=== PATIENT | male | born 1975 | race African-American/Black ===

== ENCOUNTER 2019-12-20 14:57 | Emergency (ER) | payer MEDICAID ==
[~2019-12-20] VITALS: Ht 177.8 cm; Wt 95.0 kg
[2019-12-20] MEDS ORDERED: IBUPROFEN 400 MG TABLET PO ONE (15:30)
[2019-12-20 16:24] VITALS: BP 159/85
== END 2019-12-20 16:44 | disposition home or self-care (01) ==
LOC: EMS 15:01
DX: M79.644 Pain in right finger(s) (principal); M79.641 Pain in right hand; I10 Essential (primary) hypertension; J45.909 Unspecified asthma, uncomplicated; F17.210 Nicotine dependence, cigarettes, uncomplicated; Z98.890 Other specified postprocedural states
CPT/HCPCS: 99406

== ENCOUNTER 2021-05-10 13:02 | Emergency (ER) | payer MEDICAID, OTHER ==
[~2021-05-10] VITALS: Ht 177.8 cm; Wt 90.9 kg
[2021-05-10 13:27] LABS: BASOPHILS % (AUTO) 0.3 % (0.0-2.0); EOSINOPHILS % (AUTO) 0.4 % (1.0-6.0); HEMATOCRIT 44.9 % (41-53); HEMOGLOBIN 14.5 g/dL (13.5-17.5); LYMPHOCYTES # (AUTO) 2.1 K/uL (1.0-4.8); MEAN CORPUSCULAR HEMOGLOBIN 29.4 pg (26.0-34.0); MEAN CORPUSCULAR HGB CONC 32.4 G/dL (31.0-37.0); MEAN CORPUSCULAR VOLUME 91 fL (80-100); MONOCYTES # (AUTO) 0.8 K/uL (0.1-1.0); MONOCYTES % (AUTO) 7.2 % (2.0-9.0); NEUTROPHILS # (AUTO) 8.2 K/uL (1.8-7.7); NEUTROPHILS % (AUTO) 73.1 % (40.0-70.0); PLATELET COUNT (AUTO) 244 K/uL (150-450); RED BLOOD CELL COUNT(AUTO) 4.94 MIL/uL (4.50-5.90); RED CELL DISTRIBUTION WIDTH 13.4 % (11.5-14.5)
[2021-05-10 13:43] LABS: ANION GAP 11 mmol/L (8-16); CALCIUM, TOTAL 9.1 mg/dL (8.8-10.5); CARBON DIOXIDE 25 mmol/L (22-29); CHLORIDE 107 mmol/L (98-107); CREATININE 1.22 mg/dL (0.60-1.30); GLOMERULAR FILTR. RATE CALC > 60 mL/min (>60); GLUCOSE,RANDOM 96 mg/dL (70-110); POTASSIUM 4.6 mmol/L (3.5-5.1); SODIUM SERUM 143 mmol/L (136-145); UREA NITROGEN, BLOOD 14 mg/dL (7-18)
[2021-05-10 13:47] LABS: ALANINE AMINOTRANSFERASE 28 U/L (12-78); ALBUMIN 3.6 g/dL (3.4-5.0); ALKALINE PHOSPHATASE 82 U/L (46-116); ASPARTATE AMINOTRANSFERASE 20 U/L (15-37); BILIRUBIN,TOTAL 0.8 mg/dL (0.1-1.0); TOTAL PROTEIN, SERUM 7.8 g/dL (6.4-8.2)
[2021-05-10 18:21] VITALS: BP 136/84
== END 2021-05-10 18:22 | disposition home or self-care (01) ==
LOC: EMS 13:05
DX: R07.89 Other chest pain (principal); J45.909 Unspecified asthma, uncomplicated; I10 Essential (primary) hypertension; F17.210 Nicotine dependence, cigarettes, uncomplicated
CPT/HCPCS: 71045; 80053; 84484; 85025; 93005; 99285; 36415-L1; 36415-TC

== ENCOUNTER 2022-02-11 12:54 | Emergency (ER) | payer OTHER ==
[~2022-02-11] VITALS: Ht 177.8 cm; Wt 90.9 kg
[2022-02-11] MEDS ORDERED: POVIDONE-IODINE 10% 120 ML SOLUTION TP ONE (13:30)
[2022-02-11] MEDS ORDERED: BUPIVACAINE HCL/PF 0.5% 10 ML VIAL SQ ONE (13:30)
[2022-02-11] MEDS ORDERED: CEPH500C3 PO (13:54)
[2022-02-11] MEDS ORDERED: SULF-261 PO (13:54)
[2022-02-11] MEDS ORDERED: IBUP-2070 PO (13:54)
[2022-02-11 14:06] VITALS: BP 128/81
== END 2022-02-11 14:36 | disposition home or self-care (01) ==
LOC: EMS 12:54
DX: L02.212 Cutaneous abscess of back [any part, except buttock and flank] (principal)
CPT/HCPCS: 10060; 99283; J3490

== ENCOUNTER 2022-02-14 22:47 | Emergency (ER) | payer OTHER ==
[~2022-02-14] VITALS: Ht 177.8 cm; Wt 90.9 kg
[~2022-02-14 22:47] MED LIST: CEPH500C3 PO; IBUP-2070 PO; SULF-261 PO
[2022-02-14 23:30] VITALS: BP 128/84
== END 2022-02-14 23:57 | disposition home or self-care (01) ==
LOC: EMS 22:50
DX: Z48.00 Encounter for change or removal of nonsurgical wound dressing (principal); Z98.890 Other specified postprocedural states
CPT/HCPCS: 99281; Z7502

== ENCOUNTER 2023-03-15 15:01 | Emergency (ER) | payer OTHER ==
[~2023-03-15] VITALS: Ht 177.8 cm; Wt 83.2 kg
[~2023-03-15 15:01] MED LIST changes: +CEPH-558 PO; -CEPH500C3 PO; +IBUP-1492 PO; -IBUP-2070 PO
[2023-03-15] MEDS ORDERED: DOXYCYCLINE HYCLATE 100 MG TABLET PO ONE (15:30)
[2023-03-15] MEDS ORDERED: CefTRIAXone SODIUM 1 GM/VIAL IM ONE (15:30)
[2023-03-15] MEDS ORDERED: LIDOCAINE/PF 1% 2 ML VIAL IM ONE (15:30)
[2023-03-15 16:07] LABS: APPEARANCE,URINE CLEAR (CLEAR); BILIRUBIN,URINE NEGATIVE (NEGATIVE); GLUCOSE, URINE (UA) NEGATIVE (NEGATIVE); KETONES,URINE NEGATIVE (NEGATIVE); LEUKOCYTE ESTERASE ,URINE TRACE (NEGATIVE); NITRATE,URINE NEGATIVE (NEGATIVE); OCCULT BLOOD,URINE NEGATIVE (NEGATIVE); PROTEIN,URINE NEGATIVE (NEGATIVE); SPECIFIC GRAVITIY, URINE 1.024 (1.003-1.030); UROBILINOGEN,URINE <=1.0 mg/dL (<=1.0)
[2023-03-15 16:11] LABS: BACTERIA,URINE None Seen /HPF (None Seen); RBC,URINE None Seen /HPF (0-2); WBC,URINE 0-2 /HPF (0-5)
[2023-03-15] MEDS ORDERED: DOXY-354 PO (16:27)
[2023-03-15 16:38] VITALS: BP 160/87
[2023-03-18 08:06] LABS: HIV 1-2 SCREEN 4TH GEN W/RFLX Non Reactive (Non Reactive)
== END 2023-03-15 16:40 | disposition home or self-care (01) ==
LOC: EMS 15:02
DX: R36.9 Urethral discharge, unspecified (principal); A64 Unspecified sexually transmitted disease
CPT/HCPCS: 99283; 86592; 81001; 36415; 87491; 87591; 96372; 87389; J0696; J3490

== ENCOUNTER 2023-03-27 08:06 | Emergency (ER) | payer OTHER ==
[~2023-03-27] VITALS: Ht 177.8 cm; Wt 84.1 kg
[~2023-03-27 08:06] MED LIST changes: -CEPH-558 PO; +DOXY-354 PO; -IBUP-1492 PO; -SULF-261 PO
[2023-03-27] MEDS ORDERED: KETOROLAC TROMETHAMINE 60 MG/2 ML VIAL IM ONE (09:45)
[2023-03-27 12:54] VITALS: BP 161/90
== END 2023-03-27 13:07 | disposition home or self-care (01) ==
LOC: EMS 08:16
DX: N50.811 Right testicular pain (principal); F12.90 Cannabis use, unspecified, uncomplicated; Z98.890 Other specified postprocedural states
CPT/HCPCS: 99285; 76870; 96372; J1885

== ENCOUNTER 2025-08-11 13:22 | Emergency (ER) | payer OTHER ==
[~2025-08-11] VITALS: Ht 172.7 cm; Wt 89.1 kg
[2025-08-11 13:27] VITALS: BP 115/77; PULSE 72; RESP 18; TEMP 97.9; O2SAT 99
[2025-08-11] MEDS: IBUPROFEN 600 MG TABLET PO ONE (14:03)
[2025-08-11] MEDS: ACETAMINOPHEN 500 MG TABLET PO ONE (14:03)
[2025-08-11 15:14] LABS: PLATELET COUNT (AUTO) 208 K/uL (150-450); RED BLOOD CELL COUNT(AUTO) 4.60 MIL/uL (4.50-5.90); RED CELL DISTRIBUTION WIDTH 13.9 % (11.5-14.5); WHITE BLOOD COUNT (AUTO) 8.2 K/uL (4.5-11.0)
[2025-08-11 15:23] LABS: CALCIUM, TOTAL 8.3 mg/dL (8.8-10.5); CREATININE 1.24 mg/dL (0.60-1.30); GLOMERULAR FILTR. RATE CALC > 60 mL/min (>60); GLUCOSE,RANDOM 98 mg/dL (70-110); SODIUM SERUM 139 mmol/L (136-145); UREA NITROGEN, BLOOD 15 mg/dL (7-18)
[2025-08-11 15:27] LABS: TROPONIN I-HIGH SENSITIVITY 7 ng/L (<76)
[2025-08-11 15:45] LABS: ASPARTATE AMINOTRANSFERASE 25.0 U/L (15-37); TOTAL PROTEIN, SERUM 5.7 g/dL (6.4-8.2)
== END 2025-08-11 16:47 | disposition home or self-care (01) ==
LOC: EMS 13:23
DX: R07.89 Other chest pain (principal); F41.9 Anxiety disorder, unspecified; F12.90 Cannabis use, unspecified, uncomplicated; Z98.890 Other specified postprocedural states
CPT/HCPCS: 71045; 80048; 80076; 84484; 85025; 93005; 99285; 36415-L1; 36415-TC